=== PATIENT | male | born 1960 | race Caucasian/White ===

== ENCOUNTER 2025-05-01 12:30 | Outpatient (RCR) | payer BC, SELFPAY | END 2025-08-29 23:59 | disposition home or self-care (01) | PROVIDERS: PCP Physician Assistant; Visit Provider Physician Assistant | DX: G20.C Parkinsonism, unspecified (principal); Z51.89 Encounter for other specified aftercare | CPT/HCPCS: 97112; 97116; 97162; 97530 ==